=== PATIENT | male | born 1970 | race Caucasian/White ===

== ENCOUNTER 2018-10-06 10:33 | Emergency (ER) | payer OTHER ==
[~2018-10-06] VITALS: Ht 172.7 cm; Wt 77.1 kg
[2018-10-06] MEDS ORDERED: ATORVASTATIN CA10 MG (10:44)
[2018-10-06] MEDS ORDERED: LISINOPRIL20 MG (10:45)
== END 2018-10-06 19:20 | disposition home or self-care (01) ==
LOC: ER 10:33
DX: K52.9 Noninfective gastroenteritis and colitis, unspecified (principal)

== ENCOUNTER 2020-02-16 13:26 | Outpatient (CLI) | payer OTHER ==
[~2020-02-16 13:26] MED LIST: ATORVASTATIN CA10 MG; LISINOPRIL20 MG
== END 2020-02-16 13:42 | disposition home or self-care (01) ==
LOC: RAD 13:26
DX: J18.8 Other pneumonia, unspecified organism (principal)

== ENCOUNTER 2025-03-11 08:26 | Outpatient (CLI) | payer OTHER | END 2025-03-11 08:30 | disposition home or self-care (01) | LOC: RAD 08:26 | DX: Z01.811 Encounter for preprocedural respiratory examination (principal) ==